=== PATIENT | male | born 1990 | race Caucasian/White ===

== ENCOUNTER → 2016-10-28 | Outpatient (CLI) | payer MEDICARE, OTHER ==
[~2016-10-28] MED LIST: ADVA250A INH; ALBU1AER INH; ASTE0.15 EACH NARE; AZIT250T3 PO; FLUT100A INH; GUAI100S5 PO; IPRA0.06 EACH NARE; LEVA1.257 NEB; LIDO1SOL8 SWISH-SWAL; LISI-515 PO; METO50TA PO; NEBU1MIS; PEAK FLOW METER1 MIS; PRED20 PO; SYMB80AE INH; VENTAER INH; [UNRECOGNIZED DRUG - CODE]; [UNRECOGNIZED DRUG - CODE] PO; [UNRECOGNIZED DRUG - OTHER]
[2016-10-28 08:16] LABS: AUTOMATED NEUTROPHIL # 5.9 TH/MM3 (1.8-7.7); BASOPHIL # 0.1 TH/MM3 (0-0.2); BASOPHIL % 0.7 % (0.0-2.0); EOSINOPHIL # 0.2 TH/MM3 (0-0.4); EOSINOPHIL % 1.8 % (0.0-4.0); HEMATOCRIT 47.1 % (39.0-51.0); HEMO FLAGS DIFF FINAL; LYMPH % 19.3 % (9.0-44.0); LYMPHOCYTE # 1.6 TH/MM3 (1.0-4.8); MEAN CELL VOLUME 88.7 FL (80.0-100.0); MEAN CORPUSCULAR HEMOGLOBIN 30.3 PG (27.0-34.0); MEAN CORPUSCULAR HGB CONC 34.1 % (32.0-36.0); MONO % 6.8 % (0.0-8.0); NEUT % 71.4 % (16.0-70.0); PLATELET COUNT 238 TH/MM3 (150-450); RED BLOOD COUNT 5.31 MIL/MM3 (4.50-5.90); RED CELL DISTRIBUTION WIDTH 13.1 % (11.6-17.2); WHITE BLOOD COUNT 8.3 TH/MM3 (4.0-11.0)
[2016-10-28 09:05] LABS: ALKALINE PHOSPHATASE 84 U/L (45-117); ALT (GPT) 35 U/L (12-78); ANION GAP 9 MEQ/L (5-15); BLOOD UREA NITROGEN 17 MG/DL (7-18); CHLORIDE 105 MEQ/L (98-107); GLOMERULAR FILTRATION RATE 91 ML/MIN (>89); GLUCOSE,FASTING 96 MG/DL (74-99); SODIUM (NA) 140 MEQ/L (136-145); TOTAL BILIRUBIN ADULT 0.3 MG/DL (0.2-1.0)
[2016-10-28 09:06] LABS: AST (GOT) 13 U/L (15-37); POTASSIUM 4.1 MEQ/L (3.5-5.1)
== END ==
LOC: CLAB 07:52
PROVIDERS: ATTEND Family Medicine
DX: E78.5 Hyperlipidemia, unspecified (principal); I10 Essential (primary) hypertension; E66.3 Overweight
CPT/HCPCS: 36415; 80053; 84443; 85025

== ENCOUNTER → 2017-09-01 | Outpatient (CLI) | payer MEDICARE, OTHER ==
[~2017-09-01] MED LIST changes: -ADVA250A INH; -ALBU1AER INH; -ASTE0.15 EACH NARE; +AZEL0.05 EACH EYE; +AZEL1SPR2 EACH NARE; -AZIT250T3 PO; -FLUT100A INH; -GUAI100S5 PO; -IPRA0.06 EACH NARE; -LIDO1SOL8 SWISH-SWAL; +MONT10TA2 PO; -PEAK FLOW METER1 MIS; -PRED20 PO; -[UNRECOGNIZED DRUG - CODE]; -[UNRECOGNIZED DRUG - CODE] PO; -[UNRECOGNIZED DRUG - OTHER]
--- NOTE | 2017-09-01 16:14 | RADRPT ---
EXAM DATE/TIME: 09/01/2017 14:33 [place] COMPARISON: No previous studies available for comparison. INDICATIONS : Cough. MEDICAL HISTORY : None. SURGICAL HISTORY : CABG. Heart surgery when he was young. ENCOUNTER: Initial ACUITY: 1 day PAIN SCORE: 0/10 LOCATION: Bilateral chest FINDINGS: PA and lateral views of the chest demonstrate a normal-sized cardiac silhouette. There is no effusion , consolidation, or pneumothorax. The bones and soft tissues demonstrate no acute abnormality. 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 CONCLUSION: No acute cardiopulmonary abnormality is identified. Andrae Kirk MD on September 01, 2017 at 16:12 Board Certified Radiologist. This report was verified electronically.
== END ==
LOC: HRSP 13:21
DX: J45.909 Unspecified asthma, uncomplicated (principal)
CPT/HCPCS: 71020; 94060; 94726; 94729